=== PATIENT | female | born 1970 | race Caucasian/White ===

== ENCOUNTER 2022-05-21 19:57 | Observation (INO) | payer BC, OTHER ==
[2022-05-21] MEDS ORDERED: Ringers Lactate 1,000 ML IV ONE (21:01)
[2022-05-21] MEDS ORDERED: ONDANSETRON 4 MG/2 ML VIAL ONE (21:01)
[2022-05-21] MEDS ORDERED: FAMOTIDINE 20 MG/2 ML VIAL IV ONE (21:02)
[2022-05-21 21:06] LABS: Absolute Lymphocytes (CBC) 1.1 K/uL (0.7-4.9); Hematocrit 42.8 % (36.0-45.0); Lymphocytes % 7.6 % (15.3-44.8); MCV 94.3 fL (80-100); RBC Red Blood Cell Count 4.54 M/uL (3.86-4.86)
[2022-05-21 21:24] LABS: Albumin 4.8 g/dL (3.4-5.0); Potassium 3.8 mmol/L (3.5-5.1); Protein, Total 8.9 g/dL (6.4-8.2)
--- NOTE | 2022-05-21 21:57 | RAD REPORT ---
EXAM DESCRIPTION: CTAbdomen Pelvis W Contrast - 05/21/2022 9:51 pm CLINICAL HISTORY: Abdominal pain. Nausea/vomiting COMPARISON: No comparisons TECHNIQUE: Biphasic CT imaging of the abdomen and pelvis was performed with 100 ml non-ionic IV cont rast. All CT scans are performed using dose optimization technique as appropriate and may include automated exposure control or mA/KV adjustment according to patient size. FINDINGS: The lung bases are clear.Small hiatal hernia. The liver demonstrates diffuse fatty infiltration. The spleen, pancreas, adrenal glands and kidneys a re within normal limits. No bowel obstruction, free air, free fluid or abscess. Although it incompletely distended, mild thick ening of the colon may be present. The appendix is normal. No evidence of significant lymphadenopath y. No suspicious bony findings. IMPRESSION: A mild colitis may be present, although the colon is incompletely distended for full fabiana luation. Prominent fatty liver.
--- NOTE | 2022-05-21 23:43 | EDPHYS ---
Physician Documentation [facility] Name: Maribell Alvares Age: 52 yrs Sex: Female : 1970 Arrival Date: 05/21/2022 Time: 20:01 Bed 15 Private MD: ED Physician Jesse Argueta HPI: 05/21 20:20 This 52 yrs old Female presents to ER via Ambulatory with complaints of Vomiting. ms3 20:20 The patient presents to the emergency department with nausea, that is severe, vomiting, ms3 that is continuous, abdominal pain, of the epigastric area, described as sharp, and does not radiate. Onset: The symptoms/episode began/occurred 1 day(s) ago. Possible causes: unknown. The symptoms are aggravated by nothing. The symptoms are alleviated by nothing. Associated signs and symptoms: The patient has no apparent associated signs or symptoms. Severity of symptoms: At their worst the symptoms were severe in the emergency department the symptoms are unchanged Pain is currently a 5 / 10. Historical: - Allergies: 20:14 No Known Allergies; as6 - PMHx: 20:14 Hypertensive disorder; Asthma; Hypercholesterolemia; as6 - Immunization history:: Client reports receiving the 2nd dose of the Covid vaccine, moderna Flu vaccine is not up to date. - Social history:: Smoking status: Patient reports the use of cigarette tobacco products, smokes one-half pack cigarettes per day. ROS: 20:20 Constitutional: Negative for fever, and chills. Cardiovascular: Negative for chest ms3 pain, and palpitations. Respiratory: Negative for shortness of breath, cough, wheezing, and pleuritic chest pain. 20:20 Skin: Negative for injury, rash, and discoloration, Neuro: Negative for headache, weakness, numbness, tingling. 20:20 Abdomen/GI: Positive for abdominal pain, nausea and vomiting. 20:20 All other systems are negative. Exam: 20:20 Constitutional: This is a well developed, well nourished patient who is awake, alert, ms3 and in no acute distress. Head/Face: Normocephalic, atraumatic. Neck: Trachea midline, no cervical lymphadenopathy. Supple, full range of motion without nuchal rigidity, or vertebral point tenderness. No Meningismus. Chest/axilla: Normal chest wall appearance and motion. Nontender with no deformity. Respiratory: Lungs have equal breath sounds bilaterally, clear to auscultation and percussion. No rales, rhonchi or wheezes noted. No increased work of breathing, no retractions or nasal flaring. Abdomen/GI: Soft, non-tender, with normal bowel sounds. No distension or tympany. No guarding or rebound. No evidence of tenderness throughout. Skin: Warm, dry with normal turgor. Normal color with no rashes, no lesions, and no evidence of cellulitis. MS/ Extremity: Pulses equal, no cyanosis. Neurovascular intact. Full, normal range of motion. 20:20 Cardiovascular: Rate: tachycardic, Rhythm: regular, Pulses: no pulse deficits are appreciated, Heart sounds: normal, normal S1and S2. 05/22 00:04 ECG was reviewed by the Attending Physician. ms3 Vital Signs: 05/21 20:11 BP 181 / 121; Pulse 113; Resp 18 S; Temp 98.1(O); Pulse Ox 100% on R/A; Weight 83.91 kg as6 (R); Height 5 ft. 7 in. (170.18 cm) (R); Pain 5/10; 20:30 BP 151 / 96; Pulse 105; Resp 19 S; Pulse Ox 100% on R/A; ha1 21:30 BP 160 / 98; Pulse 99; Resp 20 S; Pulse Ox 98% on R/A; ha1 22:30 BP 154 / 92; Pulse 99; Resp 19 S; Pulse Ox 98% on R/A; ha1 23:30 BP 155 / 96; Pulse 98; Resp 19 S; Pulse Ox 98% on R/A; ha1 05/22 00:30 BP 155 / 96; Pulse 99; Resp 18 S; Pulse Ox 99% on R/A; ha1 01:30 BP 150 / 97; Pulse 98; Resp 19 S; Pulse Ox 98% on R/A; ha1 02:30 BP 142 / 90; Pulse 99; Resp 19 S; Pulse Ox 98% on R/A; ha1 03:30 BP 142 / 90; Pulse 100; Resp 19 S; Pulse Ox 98% on R/A; ha1 05/21 20:11 Body Mass Index 28.97 (83.91 kg, 170.18 cm) as6 MDM: 05/21 20:11 Patient medically screened. pm1 20:20 Differential diagnosis: Nonspecific abd pain, gastritis, gastroenteritis, bowel ms3 obstruction. 23:42 Data reviewed: vital signs, nurses notes, lab test result(s), radiologic studies, and ms3 as a result, I will admit patient. Counseling: I had a detailed discussion with the patient and/or guardian regarding: the historical points, exam findings, and any diagnostic results supporting the discharge/admit diagnosis, lab results, radiology results, the need for further work-up and treatment in the hospital. ED course: Discussed labs and imaging with patient and her . Patient remains with emesis. Will place patient in observation. Discussed case with JIMENEZ Lyn and she accepts patient on behalf of Dr Carlson.. 05/21 20:20 Order name: CBC with Diff; Complete Time: 21:57 ms3 05/21 20:20 Order name: CMP; Complete Time: 21:57 ms3 05/21 20:20 Order name: Lipase; Complete Time: 21:57 ms3 05/21 20:20 Order name: Urine Microscopic Only; Complete Time: 03:42 ms3 05/21 21:58 Order name: Blood Culture Adult (2) ms3 05/21 21:58 Order name: Lactate w/ 2H reflex if indic.; Complete Time: 03:42 ms3 05/21 21:58 Order name: Protime (+inr) ms3 05/21 21:58 Order name: Ptt, Activated; Complete Time: 03:42 ms3 05/21 23:29 Order name: Glucose, Ancillary Testing; Complete Time: 23:32 EDMS 05/21 23:44 Order name: SARS RAPID ms3 05/22 00:07 Order name: Urine Osmolality sb4 05/22 00:07 Order name: Urine Sodium Random sb4 05/22 00:07 Order name: Osmolality, Serum sb4 05/22 02:37 Order name: Urine Dipstick-Ancillary; Complete Time: 03:42 EDMS 05/21 20:20 Order name: CT Abd/Pelvis - IV Contrast Only; Complete Time: 22:01 ms3 05/21 21:58 Order name: EKG; Complete Time: 21:59 ms3 05/22 02:55 Order name: Protime (+INR); Complete Time: 03:42 EDMS 12/02 03:10 Order name: UR SODIUM; Complete Time: 03:42 EDMS 05/22 03:40 Order name: Osmolality, Urine; Complete Time: 03:42 EDMS 05/22 03:41 Order name: Osmolality, Serum; Complete Time: 03:42 EDMS 05/22 05:49 Order name: CBC with Automated Diff EDMS 05/22 06:28 Order name: Renal Panel EDMS 05/22 06:28 Order name: Magnesium EDMS 05/22 06:28 Order name: Thyroid Stimulating Hormone EDMS 05/22 18:02 Order name: Basic Metabolic Panel EDMS 05/22 18:02 Order name: Phosphorus EDMS 05/22 18:02 Order name: Magnesium EDMS 05/21 20:20 Order name: IV Saline Lock; Complete Time: 21:12 ms3 05/21 20:20 Order name: Labs collected and sent; Complete Time: 21:12 ms3 05/21 20:20 Order name: Urine Dipstick-Ancillary (obtain specimen); Complete Time: 02:47 ms3 05/21 21:58 Order name: Accucheck; Complete Time: 00:56 ms3 05/21 21:58 Order name: Cardiac monitoring; Complete Time: 00:56 ms3 05/21 21:58 Order name: EKG - Nurse/Tech; Complete Time: 00:56 ms3 05/21 21:58 Order name: IV Saline Lock - Large Bore; Complete Time: 00:56 ms3 05/21 21:58 Order name: O2 Per Protocol; Complete Time: 00:56 ms3 05/21 21:58 Order name: O2 Sat Monitoring; Complete Time: 00:56 ms3 05/21 21:58 Order name: Vital Signs; Complete Time: 00:56 ms3 EC/02 00:04 Rate is 98 beats/min. Rhythm is regular. QRS [place] is Normal. [place] interval is normal. QRS ms3 interval is normal. Clinical impression: NSR w/ Non-specific ST/T Changes. Interpreted by me. Reviewed by me. Administered Medications: 05/21 21:06 Drug: Zofran (Ondansetron) 4 mg Route: IVP; Site: left antecubital; ha1 21:30 Follow up: Response: No adverse reaction; Nausea is decreased ha1 21:08 Drug: Pepcid (famotidine) 20 mg Route: IVP; Site: left antecubital; ha1 21:30 Follow up: Response: No adverse reaction ha1 21:10 Drug: Lactated Ringers Solution 1000 ml Route: IV; Rate: 1000 bolus; Site: left ha1 antecubital; 05/22 00:15 Follow up: Response: No adverse reaction; IV Status: Completed infusion; IV Intake: ha1 1000ml Disposition Summary: 05/21/22 23:42 Hospitalization Ordered Hospitalization Status: Observation ms3 Provider: Roly Carlson ms3 Condition: Stable ms3 Problem: new ms3 Symptoms: are unchanged ms3 Bed/Room Type: Standard ms3 Location: [facility](05/22/22 20:21) mw Room Assignment: [facility]-(05/22/22 20:21) mw Diagnosis - Vomiting ms3 - Hypo-osmolality and hyponatremia ms3 - Acute Kidney Injury ms3 Forms: - Medication Reconciliation Form ms3 - SBAR form ms3 Signatures: Dispatcher [employer] EDMS Mesha Casillas RN RN Nile Chester, STOCK DIGGER STOCK DIGGER pm1 Jesse Argueta, DO DO ms3 Raj Alberto RN RN as6 Avis Guthrie RN RN ha1 Nina Caruso, PANaya PANaya sb4 Corrections: (The following items were deleted from the chart) 05/21 23:46 23:42 Telemetry/MedSurg (observation) ms3 mw 23:46 23:42 ms3 mw 05/22 20:21 05/21 23:46 [facility] ER HOLD mw mw 05/22 20:21 12 23:46 ERHOLD- mw mw
--- NOTE | 2022-05-21 23:43 | ER ---
Nurse's Notes [facility] Name: Maribell Alvares Age: 52 yrs Sex: Female : 1970 Arrival Date: 05/21/2022 Time: 20:01 Bed 15 Private MD: Diagnosis: Vomiting;Hypo-osmolality and hyponatremia;Acute Kidney Injury Presentation: 05/21 20:11 Chief complaint: Patient states: "Wednesday morning at 4 am I started vomiting and it as6 hasn't really slowed down". Coronavirus screen: At this time, the client does not indicate any symptoms associated with coronavirus-19. Ebola Screen: No symptoms or risks identified at this time. Initial Sepsis Screen: Does the patient meet any 2 criteria? No. Patient's initial sepsis screen is negative. Does the patient have a suspected source of infection? No. Patient's initial sepsis screen is negative. Risk Assessment: Do you want to hurt yourself or someone else? Patient reports no desire to harm self or others. Onset of symptoms was May 20, 2022. 20:11 Method Of Arrival: Ambulatory as6 20:11 Acuity: CÉSAR 3 as6 Triage Assessment: 20:15 General: Appears uncomfortable, Behavior is calm, cooperative. Pain: Complains of pain as6 in epigastric area. GI: Reports upper abdominal pain, nausea, vomiting. Historical: - Allergies: 20:14 No Known Allergies; as6 - PMHx: 20:14 Hypertensive disorder; Asthma; Hypercholesterolemia; as6 - Immunization history:: Client reports receiving the 2nd dose of the Covid vaccine, moderna Flu vaccine is not up to date. - Social history:: Smoking status: Patient reports the use of cigarette tobacco products, smokes one-half pack cigarettes per day. Screenin/02 00:03 Abuse screen: Denies threats or abuse. Denies injuries from another. Nutritional ha1 screening: No deficits noted. Tuberculosis screening: No symptoms or risk factors identified. Fall Risk None identified. Assessment: 05/21 20:30 General: Appears uncomfortable, Behavior is calm, cooperative. Pain: Denies pain. ha1 Cardiovascular: Capillary refill < 3 seconds Patient's skin is warm and dry. Respiratory: Airway is patent Trachea midline Respiratory effort is even, unlabored. 20:30 Neuro: Level of Consciousness is awake, alert, obeys commands, Oriented to person, ha1 place, time, situation. 20:30 Respiratory: GI: Abdomen is non-distended, obese, Bowel sounds present X 4 quads. ha1 Reports vomiting. : No signs and/or symptoms were reported regarding the genitourinary system. EENT: No deficits noted. No signs and/or symptoms were reported regarding the EENT system. Derm: Skin is healthy with good turgor, Skin is pink, warm \\T\\ dry. Musculoskeletal: Circulation, motion, and sensation intact. Range of motion: intact in all extremities. 21:30 Reassessment: Patient and/or family updated on plan of care and expected duration. Pain ha1 level reassessed. Patient is alert, oriented x 3, equal unlabored respirations, skin warm/dry/pink. 22:30 Reassessment: Patient and/or family updated on plan of care and expected duration. Pain ha1 level reassessed. Patient is alert, oriented x 3, equal unlabored respirations, skin warm/dry/pink. Patient states symptoms have improved. 23:30 Reassessment: Patient and/or family updated on plan of care and expected duration. Pain ha1 level reassessed. Patient is alert, oriented x 3, equal unlabored respirations, skin warm/dry/pink. Vital Signs: 20:11 BP 181 / 121; Pulse 113; Resp 18 S; Temp 98.1(O); Pulse Ox 100% on R/A; Weight 83.91 kg as6 (R); Height 5 ft. 7 in. (170.18 cm) (R); Pain 5/10; 20:30 BP 151 / 96; Pulse 105; Resp 19 S; Pulse Ox 100% on R/A; ha1 21:30 BP 160 / 98; Pulse 99; Resp 20 S; Pulse Ox 98% on R/A; ha1 22:30 BP 154 / 92; Pulse 99; Resp 19 S; Pulse Ox 98% on R/A; ha1 23:30 BP 155 / 96; Pulse 98; Resp 19 S; Pulse Ox 98% on R/A; ha1 12 00:30 BP 155 / 96; Pulse 99; Resp 18 S; Pulse Ox 99% on R/A; ha1 01:30 BP 150 / 97; Pulse 98; Resp 19 S; Pulse Ox 98% on R/A; ha1 02:30 BP 142 / 90; Pulse 99; Resp 19 S; Pulse Ox 98% on R/A; ha1 03:30 BP 142 / 90; Pulse 100; Resp 19 S; Pulse Ox 98% on R/A; ha1 05/21 20:11 Body Mass Index 28.97 (83.91 kg, 170.18 cm) as6 ED Course: 05/21 20:01 Patient arrived in ED. bp1 20:11 Jesse Argueta DO is Attending Physician. pm1 20:14 Triage completed. as6 20:15 Arm band placed on. as6 20:18 Patient has correct armband on for positive identification. Bed in low position. Call ha1 light in reach. Side rails up X 1. Adult w/ patient. 20:33 Avis Guthrie, RN is Primary Nurse. ha1 21:15 Initial lab(s) drawn, by me, sent to lab. Inserted saline lock: 22 gauge in left tw5 antecubital area, using aseptic technique. Blood collected. 21:52 CT Abd/Pelvis - IV Contrast Only In Process Unspecified. EDMS 23:41 Roly Carlson MD is Hospitalizing Provider. ms3 05/22 02:47 Urine Microscopic Only Sent. ha1 03:45 SARS RAPID Sent. ha1 21:21 Patient admitted, IV remains in place. ke1 21:21 No provider procedures requiring assistance completed. ke1 Administered Medications: 05/21 21:06 Drug: Zofran (Ondansetron) 4 mg Route: IVP; Site: left antecubital; ha1 21:30 Follow up: Response: No adverse reaction; Nausea is decreased ha1 21:08 Drug: Pepcid (famotidine) 20 mg Route: IVP; Site: left antecubital; ha1 21:30 Follow up: Response: No adverse reaction ha1 21:10 Drug: Lactated Ringers Solution 1000 ml Route: IV; Rate: 1000 bolus; Site: left ha1 antecubital; 05/22 00:15 Follow up: Response: No adverse reaction; IV Status: Completed infusion; IV Intake: ha1 1000ml Medication: 21:21 VIS not applicable for this client. ke1 Intake: 00:15 IV: 1000ml; Total: 1000ml. ha1 Outcome: 05/21 23:42 Decision to Hospitalize by Provider. ms3 05/22 21:21 Admitted to L \\T\\ D, accompanied by tech. ke1 Condition: stable Instructed on the need for admit. 21:22 Patient left the ED. ke1 Signatures: Dispatcher [employer] EDMS Nile Chester, ADRIEN DEVELOPMENT ASSOCIATE pm1 Jesse Argueta DO DO ms3 Marifer Rao Tiffany tw5 Raj Alberto RN RN as6 Rcahelle Juarez RN RN ke1 Avis Guthrie RN RN ha1 Corrections: (The following items were deleted from the chart) 05/21 22:01 20:30 Neuro: Level of Consciousness is awake, alert, obeys commands, Oriented to ha1 person, place, time, situation, ha1 22:03 20:30 Neuro: Level of Consciousness is awake, alert, obeys commands, Oriented to ha1 person, place, time, situation, ha1 22:59 22:01 Reassessment: Patient and/or family updated on plan of care and expected ha1 duration. Pain level reassessed. Patient is alert, oriented x 3, equal unlabored respirations, skin warm/dry/pink. ha1
--- NOTE | 2022-05-21 23:56 | P.HP ---
Certification for Inpatient Patient admitted to: Observation With expected LOS: <2 Midnights Patient will require the following post-hospital care: None Practitioner: I am a practitioner with admitting privileges, knowledge of patient current condition, hospital course, and medical plan of care. Services: Services provided to patient in accordance with Admission requirements found in Title 42 Section 412.3 of the Code of Federal Regulations Patient History Date of Service: 05/22/22 Primary Care Provider: Isaiah Reason for admission: Intractable Vomiting, NATY History of Present Illness: Patient is a 52 year old female with past medical history of hypertension, hyperlipidemia, asthma who presented to the ED with complaints of vomiting and heartburn. Patient reports that the vomiting began Wednesday morning around 4AM and has occurred every 30 minutes since. She has not been able to hold any food/liquid down. She denies abdominal pain but does report heartburn associated with the vomiting. She states that she had a small amount of diarrhea yesterday, but has not had any since. Her labs are significant for WBC 14, sodium 127, chloride 87, BUN 25, creatinine 1.45. CT abdomen pelvis showed "A mild colitis may be present, although the colon is incompletely distended for full evaluation. Prominent fatty liver." She was given zofran, pepcid, and 1L LR in ED. Patient is admitted for further management. Allergies No Known Allergies Allergy (Unverified 02/03/14 00:17) Home medications list reviewed: Yes Home Medications: Mag Hydroxide 8% [Milk Of Magnesia*] 30 ml PO Q6HP 02/03/14 Polyethylene Glycol 3350 [Miralax] 17 gm PO DAILY 02/03/14 clonazePAM [Klonopin*] 0.5 mg PO BID 02/03/14 Hydrocodone Bit/Acetaminophen [[place] 10-325 Tablet] 1 each PO Q6H PRN #30 tablet 02/05/14 Losartan Potassium [Cozaar*] 50 mg PO BID #60 tablet 02/05/14 Ondansetron [Zofran (Odt)*] 4 mg PO Q6H PRN #14 tab 02/05/14 - Past Medical/Surgical History Diabetic: No -: Hypertension -: Hyperlipidemia -: Asthma Past Surgical History: Patient denies surgical history Psychosocial/ Personal History: Patient lives at home with family. - Family History Family History: Reviewed- Non-Contributory - Social History Smoking Status: Current every day smoker Alcohol use: Yes CD- Drugs: No Caffeine use: No Place of Residence: Home Review of Systems General: Sweats Gastrointestinal: Nausea, Vomiting, Other (Heartburn) Physical Examination - Physical Exam General: Alert, In no apparent distress HEENT: Atraumatic, PERRLA, Other (Dry mucous membranes), EOMI, Sclerae nonicteric Neck: Supple, 2+ carotid pulse no bruit, No LAD, Without JVD or thyroid abnormality Respiratory: Clear to auscultation bilaterally, Normal air movement Cardiovascular: Regular rate/rhythm, Normal S1 S2 Gastrointestinal: Normal bowel sounds, No tenderness Musculoskeletal: No tenderness Integumentary: No rashes Neurological: Normal speech, Normal strength at 5/5 x4 extr, Normal tone, Normal affect - Studies Laboratory Data (last 24 hrs) 05/21/22 20:55: Sodium 127 L, Potassium 3.8, BUN 25 H, Creatinine 1.45 H, Glucose 175 H, Total Bilirubin 1.0, AST 47 H, ALT 46, Alkaline Phosphatase 74, Lipase 174 05/21/22 20:55: WBC 14.10 H, Hgb 14.5, Hct 42.8, Plt Count 289 Assessment and Plan - Problems (Diagnosis) (1) Acute kidney injury Current Visit: Yes Status: Acute (2) Intractable vomiting Current Visit: Yes Status: Acute (3) Hyponatremia Current Visit: Yes Status: Acute (4) Dehydration Current Visit: Yes Status: Acute (5) Hyperlipidemia Current Visit: Yes Status: Chronic Qualifiers: Hyperlipidemia type: unspecified Qualified Code(s): E78.5 - Hyperlipidemia, unspecified (6) HTN (hypertension) Current Visit: Yes Status: Chronic Qualifiers: Hypertension type: primary hypertension Qualified Code(s): I10 - Essential (primary) hypertension - Plan NS at 150 cc/hr for hypovolemic hyponatremia secondary to dehydration. Serum osmolality, urine osmolality, and urine sodium pending. Repeat labs in AM, including renal panel. NATY prerenal secondary to dehydration/vomiting. Antiemetics PRN. Monitor and replete electrolytes per protocol. Reconcile and continue home medications. Lovenox for VTE prophylaxis. Full code. Discharge Plan: Home Plan to discharge in: 24 Hours - Advance Directives Does patient have a Living Will: No Does patient have a Durable POA for Healthcare: No - Code Status/Comfort Care Code Status Assessed: Yes Code Status: Full Code Critical Care: No Time Spent Managing Pts Care (In Minutes): 50
[2022-05-22] MEDS ORDERED: ACETAMINOPHEN 500 MG TAB PO PRN (01:55)
[2022-05-22] MEDS: NA CHLORIDE 0.9% 1,000 ML IV SCH ×3 (01:55→21:34)
[2022-05-22] MEDS ORDERED: ACETAMINOPHEN 325 MG TABLET PO PRN (02:00)
[2022-05-22] MEDS ORDERED: PROMETHAZINE INJ 25 MG/ML AMP ONE ×2 (02:10→06:47)
[2022-05-22] MEDS ORDERED: NA CHLORIDE 0.9% 1,000 ML ONE ×2 (02:11→15:18)
[2022-05-22] MEDS: PROMETHAZINE INJ 25 MG/ML AMP IV PRN ×2 (02:30→06:52)
[2022-05-22 02:37] LABS: Urine Blood 2+ (Negative); Urine Glucose Negative (Negative); Urine Protein 3+ (Negative); Urine Specific Gravity 1.015 (1.005-1.030)
[2022-05-22 02:55] LABS: Protime INR 0.95
[2022-05-22 03:10] LABS: Urine Bacteria <20 /HPF (<20); Urine Mucus Slight /HPF (None Seen)
[2022-05-22 04:14] LABS: SARS-CoV-2 Antigen Rapid Res Negative (Negative)
[2022-05-22 05:03] VITALS: BMI 29.0
[2022-05-22 05:41] LABS: Absolute Lymphocytes (CBC) 1.8 K/uL (0.7-4.9); Hematocrit 39.6 % (36.0-45.0); Lymphocytes % 17.7 % (15.3-44.8); MCV 95.1 fL (80-100); RBC Red Blood Cell Count 4.16 M/uL (3.86-4.86)
[2022-05-22 06:09] LABS: Albumin 4.1 g/dL (3.4-5.0); Magnesium 1.7 mg/dL (1.8-2.4); Phosphorus 1.4 mg/dL (2.5-4.9); Potassium 3.2 mmol/L (3.5-5.1); Thyroid Stimulating Hormone 1.39 uIU/mL (0.360-3.740)
[2022-05-22] MEDS ORDERED: POTASSIUM PHOS 40 MEQ in NA CHLORIDE 0.9% 500 ML IV ONE (07:03)
[2022-05-22] MEDS ORDERED: Magnesium Sulfate 2gm IVPB 2 G/50 ML BAG IV ONE ×2 (07:03→08:52)
--- NOTE | 2022-05-22 07:49 | EKG ---
Test Date: 2022-05-22 Test Time: 00:01:48 Day Care Home Provider: DIA MEASUREMENT RESULTS: Intervals: Rate: 98 GA: 140 QRSD: 80 QT: 358 QTc: 457 [place]: P: 69 GA: 140 QRS: 41 T: 59 INTERPRETIVE STATEMENTS: Normal sinus rhythm Nonspecific T wave abnormality Abnormal ECG Compared to ECG 02/02/2014 19:36:42 T-wave abnormality now present Short GA interval no longer present Electronically Signed On 05-22-22 07:48:45 ENAMEL MACHINE OPERATOR by Serg Olivarez
[2022-05-22] MEDS ORDERED: INFLUENZA VACCINE (for 6+ mo) 0.5 ML DOSE IMVAC ONE (08:00)
[2022-05-22] MEDS ORDERED: ENOXAPARIN 40 MG/0.4 ML SQ ONE (08:52)
[2022-05-22] MEDS ORDERED: ONDANSETRON 4 MG/2 ML VIAL ONE (08:52)
[2022-05-22] MEDS: ENOXAPARIN 40 MG/0.4 ML SQ SCH (09:00)
[2022-05-22] MEDS ORDERED: MAGNES/ALUMIN/SIMET 30ML UCUP PO ONE (09:10)
[2022-05-22] MEDS ORDERED: MAGNES/ALUMIN/SIMET 30ML UCUP ONE (09:14)
[2022-05-22] MEDS ORDERED: ONDANSETRON 4 MG/2 ML VIAL IV PRN (13:48)
[2022-05-22] MEDS ORDERED: PROMETHAZINE 25 MG TABLET PO PRN (13:48)
[2022-05-22] MEDS ORDERED: HOME MED [ALBUTEROL INHALER 60 PUFF/8 GM] IH PRN (14:14)
[2022-05-22] MEDS ORDERED: clonazePAM 0.5 MG TAB PO ONE (15:00)
[2022-05-22] MEDS ORDERED: clonazePAM 0.5 MG TAB ONE ×2 (15:17→21:33)
[2022-05-22] MEDS ORDERED: FAMOTIDINE 20 MG/2 ML VIAL IV ONE ×2 (15:18→16:00)
[2022-05-22 17:53] LABS: Magnesium 2.4 mg/dL (1.8-2.4); Phosphorus 1.9 mg/dL (2.5-4.9); Potassium 3.2 mmol/L (3.5-5.1)
[2022-05-22] MEDS: clonazePAM 0.5 MG TAB PO SCH (21:34)
[2022-05-22 21:54] VITALS: O2SAT 98
[2022-05-23] MEDS: NA CHLORIDE 0.9% 1,000 ML IV SCH (05:33)
[2022-05-23] MEDS: clonazePAM 0.5 MG TAB PO SCH (09:00)
[2022-05-23] MEDS ORDERED: MONTELUKAST 10 MG TAB PO SCH (09:00)
[2022-05-23] MEDS: ENOXAPARIN 40 MG/0.4 ML SQ SCH (09:00)
[2022-05-23] MEDS ORDERED: POLYETHYL GLY 3350 17 GM/DOSE PO SCH (09:00)
[2022-05-23] MEDS ORDERED: allopurinoL 300 MG TAB PO SCH (09:00)
[2022-05-23] MEDS ORDERED: HOME MED 1 EA UNK (Olmesartan Medoxomil [Olmesartan Medoxomil] 40 MG Tablet) PO SCH (09:00)
[2022-05-23] MEDS ORDERED: FENOFIBRATE 160 MG TAB PO SCH (09:00)
[2022-05-23] MEDS ORDERED: HOME MED 1 EA UNK (Fluticasone/Umeclidin/Vilanter [Trelegy Ellipta 200-62.5-25] Blst.W.Dev IH SCH (09:00)
[2022-05-23] MEDS ORDERED: ROSUVASTATIN 10 MG TAB PO SCH (09:00)
[2022-05-23] MEDS ORDERED: VALSARTAN 160 MG TAB PO SCH (09:00)
[2022-05-23 09:04] LABS: Magnesium 2.2 mg/dL (1.8-2.4); Phosphorus 1.9 mg/dL (2.5-4.9)
[2022-05-23] MEDS ORDERED: POTASSIUM 25 MEQ EFFERV TAB PO ONE (09:59)
[2022-05-23] MEDS ORDERED: POTASS/SODIUM PHOSPHATE 1 PKT POWD.PACK PO ONE (10:03)
[2022-05-23 12:35] VITALS: BP 148/94; TEMP 97.2
== END 2022-05-23 12:54 | disposition home or self-care (01) ==
LOC: ER 19:57 → ERHOLD 05-22 00:01 → 2ND-WC 05-22 21:05
PROVIDERS: ADMIT Hospitalist; ATTEND Hospitalist
DX: N17.9 Acute kidney failure, unspecified (principal); R11.10 Vomiting, unspecified; E87.1 Hypo-osmolality and hyponatremia; E86.0 Dehydration; E78.5 Hyperlipidemia, unspecified; I10 Essential (primary) hypertension; F17.210 Nicotine dependence, cigarettes, uncomplicated; R12 Heartburn; Z20.822 Contact with and (suspected) exposure to COVID-19; Z23 Encounter for immunization
CPT/HCPCS: 96361; 93005; 87040 ×2; 85025 ×2; 80048 ×2; 36415 ×2; 83735 ×3; 84100 ×2; 85610; 84300; 82947; 83605; 85730; 80069; 84443; 83690; 80053; 83930; 83935; 74177; 96375; 96374; 99285; 87811; Q9967; J2550 ×2; Q0169; J1650 ×2; J3475; J7120; J7040; J7030 ×4; J2405 ×3; 81003; 81015; G0378

== ENCOUNTER 2023-05-07 15:29 | Emergency (ER) | payer BC, SELFPAY ==
--- OUTSIDE RECORDS SUMMARY | 2023-05-07 15:31 | XMS REPORT | Continuity of Care Document ---
:1970 Author Organization [facility] t Address [address] [address] Care Team Providers Name Role Phone [email or web address] Attending Clinician Unavailable [email or web address] Admitting Clinician Unavailable Problems This patient has no known problems. Allergies, Adverse Reactions, Alerts This patient has no known allergies or adverse reactions. Medications This patient has no known medications. Procedures This patient has no known procedures. Encounters Start End Encounter Admission Attending Care Care Encounter Source Date/Time Date/Time Type Type Clinicians Facility Department ID 2023-04-16 2023-04-16 Outpatient [email or web address] PRIV PRIV [id number] [facility] 00:00:00 00:00:00 diyala_S [id number] Medic al Results This patient has no known results.
--- NOTE | 2023-05-07 16:47 | RAD REPORT ---
EXAM DESCRIPTION: RAD - Chest Single View - 05/07/2023 4:41 pm CLINICAL HISTORY: ABDOMINAL DISTENTION Chest pain. COMPARISON: Chest Pa And Lat (2 Views) dated 04/02/2020; CHEST SINGLE VIEW dated 02/02/2014 FINDINGS: Portable technique limits examination quality. The lungs are grossly clear. The heart is normal in size. No displaced fractures. IMPRESSION: No acute intrathoracic process suspected.
[2023-05-07] MEDS ORDERED: NA CHLORIDE 0.9% 1,000 ML ONE ×2 (16:51→19:09)
[2023-05-07] MEDS ORDERED: ONDANSETRON 4 MG/2 ML VIAL ONE (16:51)
[2023-05-07] MEDS ORDERED: MORPHINE 2 MG/ML SYR ONE ×3 (17:10→22:18)
[2023-05-07] MEDS ORDERED: LABETALOL 20 MG/4ML SYRINGE IV ONE (17:11)
[2023-05-07 17:12] LABS: Hematocrit 42.3 % (36.0-45.0); Lymphocytes % 8.1 % (15.3-44.8); MCV 95.4 fL (80-100); MPV 9.2 fL (7.6-11.3); Platelets 236 thou/uL (152-406); RBC Red Blood Cell Count 4.43 M/uL (3.86-4.86)
[2023-05-07 17:13] LABS: Protime INR 0.95
--- NOTE | 2023-05-07 17:19 | RAD REPORT ---
EXAM DESCRIPTION: US - Abdomen Exam Limited - 05/07/2023 4:48 pm CLINICAL HISTORY: Abd pain;Nausea / vomiting COMPARISON: Abdomen Pelvis W Contrast dated 05/21/2022 FINDINGS: The gallbladder demonstrates no gallstones. No pericholecystic fluid or gallbladder wall t hickening. The common bile duct is mildly prominent measuring 8 mm. The liver demonstrates no findings of intrahepatic biliary dilatation. IMPRESSION: No gallstones are visualized. Common bile duct appears mildly dilated measuring 8 mm. MRCP may be helpful for further evaluation.
[2023-05-07 17:28] LABS: Magnesium 1.9 mg/dL (1.6-2.4); Troponin High Sensitivity 12.5 pg/mL (<58.9)
[2023-05-07 17:40] LABS: Albumin 4.6 g/dL (3.4-5.0); Bilirubin Total 0.9 mg/dL (0.2-1.0); Potassium 3.3 mEq/L (3.5-5.1); Protein, Total 8.8 g/dL (6.4-8.2)
--- NOTE | 2023-05-07 18:20 | RAD REPORT ---
EXAM DESCRIPTION: MRI - Cholangiogram - 05/07/2023 6:09 pm CLINICAL HISTORY: VOMITING ABD PAIN COMPARISON: Abdomen Pelvis Wo Contrast dated 05/07/2023 FINDINGS: Three-dimensional MRCP was performed using maximum intensity projection reconstruction on the same work station. No intrahepatic biliary tree dilatation is seen. Common bile duct is mildly dilated. There is a relat ively abrupt cut off of the distal common duct seen without clear evidence of a stone. The pancreatic duct is not pathologically dilated. Moderate inflammation is seen involving the pancreas The gallbladder is unremarkable. The liver demonstrates fatty infiltration. IMPRESSION: There is evidence of moderate acute pancreatitis. No intrahepatic biliary tree dilatation. Common duct is mildly dilated with relatively abrupt cut off distally which could indicate narrowing related to edema in the pancreas or a stricture. A common du ct stone is not evident.
--- NOTE | 2023-05-07 18:22 | RAD REPORT ---
EXAM DESCRIPTION: CT - Abdomen Pelvis Wo Contrast - 05/07/2023 6:13 pm CLINICAL HISTORY: Abdominal pain. ABD PAIN COMPARISON: Abdomen Pelvis W Contrast dated 05/21/2022 TECHNIQUE: CT imaging of the abdomen and pelvis was performed without contrast. Solid organ, bowel a nd vascular assessment is limited due to lack of IV and oral contrast. All CT scans are performed using dose optimization technique as appropriate and may include automated exposure control or mA/KV adjustment according to patient size. FINDINGS: The lower lung ortez are clear. Mild diffuse fatty liver. No solid liver mass or biliary dilatation. The pancreas, adrenal glands and kidneys are within normal limits.Mild to moderate inflammation is seen involving the pancreas likely representing acute pancreatitis. No pseudocyst seen. No bowel obstruction, free air, free fluid or abscess. The appendix is normal. The osseous structures are within normal limits. IMPRESSION: Mild to moderate acute pancreatitis. A limited non-contrast examination was performed as detailed.
[2023-05-07 18:26] LABS: Blood Morphology Comment NOT SEEN (NOT SEEN); Platelet Estimate ADEQ; Platelets, Giant PRESENT
--- NOTE | 2023-05-07 18:36 | EDPHYS ---
Physician Documentation [facility] Name: Maribell Alvares Age: 53 yrs Sex: Female : 1970 Arrival Date: 05/07/2023 Time: 15:29 Bed 16 Private MD: ED Physician Salinas Thurman HPI: 05/07 16:47 This 53 yrs old Female presents to ER via Ambulatory with complaints of piyush Vomiting, Decreased Appetite, Abdominal Pain. 16:47 This 53 yrs old Female presents to ER via Ambulatory with complaints of piyush Vomiting, Decreased Appetite, Abdominal Pain. 16:47 The patient presents to the emergency department with nausea, vomiting, abdominal pain, piyush of the epigastric area, right upper quadrant and left upper quadrant. Onset: The symptoms/episode began/occurred 4 day(s) ago. Possible causes: unknown. The symptoms are aggravated by movement, pressure, food , The symptoms are alleviated by nothing. remaining still. Associated signs and symptoms: Pertinent positives: abdominal pain, anorexia, nausea, vomiting. Severity of symptoms: At their worst the symptoms were moderate in the emergency department the symptoms are unchanged. The patient has not experienced similar symptoms in the past. Historical: - Allergies: 15:46 No Known Allergies; nj1 - PMHx: 15:46 Asthma; Hypercholesterolemia; Hypertensive disorder; nj1 - Immunization history:: Client reports receiving the 2nd dose of the Covid vaccine. - Social history:: Smoking status: Patient reports the use of cigarette tobacco products, smokes one-half pack cigarettes per day. ROS: 16:48 Constitutional: Negative for fever, chills, and weight loss, Eyes: Negative for injury, piyush pain, redness, and discharge, ENT: Negative for injury, pain, and discharge, Neck: Negative for injury, pain, and swelling, Respiratory: Negative for shortness of breath, cough, wheezing, and pleuritic chest pain, Back: Negative for injury and pain, : Negative for injury, bleeding, discharge, and swelling, MS/Extremity: Negative for injury and deformity, Skin: Negative for injury, rash, and discoloration, Neuro: Negative for headache, weakness, numbness, tingling, and seizure, Psych: Negative for depression, anxiety, suicide ideation, homicidal ideation, and hallucinations, Allergy/Immunology: Negative for hives, rash, and allergies, Endocrine: Negative for neck swelling, polydipsia, polyuria, polyphagia, and marked weight changes, Hematologic/Lymphatic: Negative for swollen nodes, abnormal bleeding, and unusual bruising, 16:48 Cardiovascular: Positive for palpitations, 16:48 Respiratory: Positive for cough, with no reported sputum, Negative for shortness of breath, 16:48 Abdomen/GI: Positive for abdominal pain, nausea and vomiting, abdominal cramps, of the epigastric area, right upper quadrant and left upper quadrant, Exam: 16:48 Constitutional: This is a well developed, well nourished patient who is awake, alert, piyush and in no acute distress. Head/Face: Normocephalic, atraumatic. Eyes: Pupils equal round and reactive to light, extra-ocular motions intact. Lids and lashes normal. Conjunctiva and sclera are non-icteric and not injected. Cornea within normal limits. Periorbital areas with no swelling, redness, or edema. ENT: Nares patent. No nasal discharge, no septal abnormalities noted. Tympanic membranes are normal and external auditory canals are clear. Oropharynx with no redness, swelling, or masses, exudates, or evidence of obstruction, uvula midline. Mucous membranes moist. Neck: Trachea midline, no thyromegaly or masses palpated, and no cervical lymphadenopathy. Supple, full range of motion without nuchal rigidity, or vertebral point tenderness. No Meningismus. Chest/axilla: Normal chest wall appearance and motion. Nontender with no deformity. No lesions are appreciated. Respiratory: Lungs have equal breath sounds bilaterally, clear to auscultation and percussion. No rales, rhonchi or wheezes noted. No increased work of breathing, no retractions or nasal flaring. Back: No spinal tenderness. No costovertebral tenderness. Full range of motion. Skin: Warm, dry with normal turgor. Normal color with no rashes, no lesions, and no evidence of cellulitis. MS/ Extremity: Pulses equal, no cyanosis. Neurovascular intact. Full, normal range of motion. Neuro: Awake and alert, GCS 15, oriented to person, place, time, and situation. Cranial nerves II-XII grossly intact. Motor strength 5/5 in all extremities. Sensory grossly intact. Cerebellar exam normal. Normal gait. Psych: Awake, alert, with orientation to person, place and time. Behavior, mood, and affect are within normal limits. 16:48 Cardiovascular: Rate: tachycardic, actual rate is 116 bpm, Rhythm: regular, Pulses: Pulses are 4+ in bilateral radial, brachial, femoral, popliteal, posterior tibial and and dorsalis pedis arteries.. Heart sounds: normal, Edema: is not appreciated, JVD: is not appreciated, 16:48 Abdomen/GI: Inspection: distension, that is mild, in the right upper quadrant and left upper quadrant, obese Bowel sounds: normal, Palpation: mild abdominal tenderness, moderate abdominal tenderness, in the epigastric area, right upper quadrant and left upper quadrant, mass, is not appreciated, rebound tenderness, is not appreciated, Liver: no appreciated palpable abnormalities, Hernia: not appreciated, 17:29 ECG was reviewed by the Attending Physician. [facility] Vital Signs: 15:43 BP 154 / 115; Pulse 116; Resp 18; Temp 97.5(O); Pulse Ox 100% ; Weight 86.18 kg; Height nj1 5 ft. 7 in. ; Pain 8/10; 16:15 BP 154 / 126; Pulse 109; Resp 20; Pulse Ox 100% on R/A; me1 16:55 BP 145 / 99; Pulse 108; Resp 18; Pulse Ox 100% on R/A; me1 17:05 BP 136 / 105; Pulse 87; Resp 19; Pulse Ox 100% ; me1 18:07 BP 156 / 100; Pulse 89; Resp 20; Pulse Ox 100% on R/A; me1 18:30 BP 156 / 110; Pulse 90; Resp 20; Pulse Ox 100% on R/A; me1 19:00 BP 147 / 100; Pulse 84; Resp 19; Pulse Ox 100% ; me1 19:42 BP 169 / 116; Pulse 82; Resp 19; Pulse Ox 100% on R/A; me1 19:51 BP 117 / 115; Pulse 82; Resp 20; Pulse Ox 100% on R/A; me1 19:59 BP 144 / 106; Pulse 94; Resp 18; Pulse Ox 100% on R/A; me1 20:36 BP 153 / 92; Pulse 75; Resp 18; Pulse Ox 100% on R/A; me1 15:43 Body Mass Index 29.76 (86.18 kg, 170.18 cm) [facility] 15:43 Pain Scale: Adult [facility] MDM: 15:58 Patient medically screened. [facility] 16:51 Differential diagnosis: Nonspecific abd pain, gastritis, cholecystitis, pancreatitis, piyush appendicitis, diverticulitis, viral gastroenteritis, gastroenteritis. Data reviewed: vital signs, nurses notes, lab test result(s), EKG, radiologic studies, CT scan, plain films, ultrasound. Consideration of Admission/Observation Patient was admitted/placed on observation. Escalation of care including admission/observation considered. I considered the following discharge prescriptions or medication management in the emergency department Medications were administered in the Emergency Department. See MAR. Independent interpretation of the following test(s) in the Emergency Department EKG: See my EKG interpretation above. Test considered but Not performed: MRI: no mrcp. Historians other than the Patient: Spouse/Significant Other: . Care significantly affected by the following chronic conditions: Hypertension. Counseling: I had a detailed discussion with the patient and/or guardian regarding the historical points, exam findings, and any diagnostic results supporting the discharge/admit diagnosis, the presence of at least one elevated blood pressure reading (>120/80) during this emergency department visit, lab results, radiology results, the need for further work-up and treatment in the hospital. 05/07 15:53 Order name: Flu; Complete Time: 17:57 05/07 15:53 Order name: CBC with Diff; Complete Time: 18:30 05/07 15:53 Order name: CMP; Complete Time: 17:57 05/07 15:53 Order name: Lipase; Complete Time: 17:57 05/07 16:01 Order name: Magnesium; Complete Time: 17:57 [facility] 05/07 16:01 Order name: NT PRO-BNP; Complete Time: 17:57 [facility] 05/07 16:01 Order name: PT-INR; Complete Time: 17:18 [facility] 05/07 16:01 Order name: Troponin HS; Complete Time: 17:57 [facility] 05/07 16:02 Order name: Strep [facility] 05/07 17:16 Order name: SARS-COV-2 RT PCR; Complete Time: 17:57 [facility] 05/07 17:30 Order name: Throat Culture [facility] 05/07 18:26 Order name: Manual Differential; Complete Time: 18:30 [facility] 05/07 15:53 Order name: US Abdomen Limited; Complete Time: 17:25 05/07 16:01 Order name: XRAY Chest (1 view); Complete Time: 17:18 [facility] 05/07 17:32 Order name: Cholangiogram; Complete Time: 18:30 [facility] 05/07 18:01 Order name: CT Abd/Pelvis - Without Contrast; Complete Time: 18:30 [facility] 05/07 16:01 Order name: EKG; Complete Time: 16:01 [facility] 05/07 15:53 Order name: IV Saline Lock; Complete Time: 16:53 rn 05/07 15:53 Order name: Labs collected and sent; Complete Time: 16:53 rn 05/07 16:01 Order name: Cardiac monitoring; Complete Time: 17:12 [facility] 05/07 16:01 Order name: EKG - Nurse/Tech; Complete Time: 17:12 [facility] 05/07 16:01 Order name: O2 Per Protocol; Complete Time: 16:53 [facility] 05/07 16:01 Order name: O2 Sat Monitoring; Complete Time: 16:53 [facility] 05/07 19:02 Order name: IV Saline Lock - Large Bore; Complete Time: 19:26 [facility] EC:29 Rate is 81 beats/min. Rhythm is regular. QRS [place] is Normal. MD interval is normal. QRS piyush interval is normal. QT interval is normal. No Q waves. T waves are Normal. No ST changes noted. Clinical impression: Normal ECG and No evidence of ischemia. Interpreted by me. Reviewed by me. Administered Medications: 16:53 Drug: NS 0.9% IV 1000 ml IV at 1 bolus Per protocol; 1000 mL bolus Route: IV; Rate: 1 me1 bolus; Site: left antecubital; 22:28 Follow up: IV Status: Completed infusion nh1 16:53 Drug: Ondansetron IVP 4 mg IVP once; over 2 minutes Route: IVP; Site: left antecubital; [facility] [place]:28 Follow up: Response: No adverse reaction me1 16:59 Drug: morphine IVP or IV 2 mg IVP once over 4 mins Route: IVP; Infused Over: 4 mins; nh1 Site: left antecubital; 22:27 Follow up: Response: No adverse reaction; Pain is decreased me1 16:59 Drug: Labetalol IV 10 mg IV at per protocol once Route: IV; Rate: per protocol; [place] [facility] [place]cubital; 22:27 Follow up: Response: No adverse reaction; IV Status: Completed infusion me1 18:37 Not Given (bp decreased with first 10 mg dose.): [id number] mg IV at per protocol once me1 over 2 mins; For SBP greater than 140. Hold for HR less than 60, notify provider. 19:03 CANCELLED (Duplicate Order): ns 0.9% 1000 ml IV at 125 ml/hr continuous piyush 19:10 Drug: morphine IVP or IV 2 mg IVP once over 4 mins Route: IVP; Infused Over: 4 mins; me1 Site: left antecubital; 22:27 Follow up: Response: No adverse reaction; Pain is decreased me1 19:10 Drug: NS 0.9% with KCl IV 20 mEq/L 1000 ml IV at 125 ml/hr continuous Route: IV; Rate: me1 125 ml/hr; Site: left antecubital; 22:26 Follow up: IV Status: Infusion continued upon transfer me1 19:19 Drug: NS 0.9% IV 1000 ml IV at 1 bolus Per protocol; 1000 mL bolus Route: IV; Rate: 1 me1 bolus; Site: left antecubital; 22:27 Follow up: IV Status: Completed infusion me1 19:19 Drug: NS 0.9% IV 500 ml IV at bolus once Route: IV; Rate: bolus; Site: left antecubital;me1 22:26 Follow up: IV Status: Completed infusion me1 19:19 Drug: Meropenem IV 1 grams IV at per protocol once; (mix in NS 100 mL) Route: IV; Rate: me1 per protocol; Site: left antecubital; 22:26 Follow up: Response: No adverse reaction; IV Status: Completed infusion me1 19:25 Drug: Promethazine IVP 12.5 mg IVP once Route: IVP; Site: left antecubital; me1 22:26 Follow up: Response: No adverse reaction me1 19:35 Drug: Labetalol IV 10 mg IV at per protocol once over 2 mins; Hold if HR less than 60, me1 notify provider. Ask for repeat dosage for SBP remaining greater than 140 mmHg. Route: IV; Rate: per protocol; Infused Over: 2 mins; Site: left antecubital; 22:26 Follow up: Response: No adverse reaction me1 22:08 Drug: morphine IVP or IV 2 mg IVP once over 4 mins Route: IVP; Infused Over: 4 mins; jb4 Site: left antecubital; 22:26 Follow up: Response: No adverse reaction me1 Disposition Summary: 05/07/23 18:36 Transfer Ordered Notes: Transfer Location: [facility] piyush Reason: Higher level of care piyush Condition: Fair piyush Problem: new piyush Symptoms: have improved piyush Accepting Physician: TO MEDICINE(05/07/23 22:25) me1 Diagnosis - Acute pancreatitis without necrosis or infection, unspecified piyush - Vomiting piyush - Acute kidney failure, unspecified - ON CHRONIC piyush - Upper abdominal pain, unspecified piyush - Elevated white blood cell count piyush - Hypokalemia piyush - Dehydration piyush Forms: - Medication Reconciliation Form piyush - SBAR form piyush Signatures: Dispatcher [employer] EDMS Valerie Rossi RN RN kl Anderson, Corey, MD MD cha Nieto, Roman, MD MD rn Bryson, James, RN RN jb4 Melissa Craig RN RN nj1 Gabby Aviles RN RN me1 Corrections: (The following items were deleted from the chart) 17:16 15:53 SARS-COV-2 Antigen Rapid+I.LAB.BRZ ordered. EDMS EDMS 18:05 15:54 Abdomen Pelvis W Con+CT.RAD.BRZ ordered. EDMS EDMS 18:36 18:36 TO MEDICINE piyush piyush 19:03 19:02 NS 0.9% IV 1000 ml IV at 125 ml/hr continuous ordered. piyush piyush 22:25 18:36 TO MEDICINE piyush me1
--- NOTE | 2023-05-07 18:36 | ER ---
Nurse's Notes [facility] Name: Maribell Alvares Age: 53 yrs Sex: Female : 1970 Arrival Date: 05/07/2023 Time: 15:29 Bed 16 Private MD: Diagnosis: Acute pancreatitis without necrosis or infection, unspecified;Vomiting;Acute kidney failure, unspecified-ON CHRONIC;Upper abdominal pain, unspecified;Elevated white blood cell count;Hypokalemia;Dehydration Presentation: 05/07 15:43 Chief complaint: Patient states: Cough, congestion and vomiting since Wednesday. Upper nj1 abdominal pain since yesterday. Denies diarrhea, chills. Coronavirus screen: Vaccine status: Patient reports receiving the 2nd dose of the covid vaccine. Ebola Screen: Patient denies travel to an Ebola-affected area in the 21 days before illness onset. Initial Sepsis Screen: Does the patient meet any 2 criteria? HR > 90 bpm. No. Patient's initial sepsis screen is negative. Does the patient have a suspected source of infection? No. Patient's initial sepsis screen is negative. Risk Assessment: Do you want to hurt yourself or someone else? Patient reports no desire to harm self or others. Onset of symptoms was May 04, 2023. 15:43 Method Of Arrival: Ambulatory [facility] 15:43 Acuity: CÉSAR 3 nj1 Historical: - Allergies: 15:46 No Known Allergies; nj1 - PMHx: 15:46 Asthma; Hypercholesterolemia; Hypertensive disorder; nj1 - Immunization history:: Client reports receiving the 2nd dose of the Covid vaccine. - Social history:: Smoking status: Patient reports the use of cigarette tobacco products, smokes one-half pack cigarettes per day. Screenin:35 [facility] ED Fall Risk Assessment (Adult) History of falling in the last 3 months, me1 including since admission No falls in past 3 months (0 pts) Confusion or Disorientation No (0 pts) Intoxicated or Sedated No (0 pts) Impaired Gait No (0 pts) Mobility Assist Device Used No (0 pt) Altered Elimination No (0 pt) Score/Fall Risk Level 0 - 2 = Low Risk. Abuse screen: Denies threats or abuse. Nutritional screening: No deficits noted. Tuberculosis screening: No symptoms or risk factors identified. Assessment: 15:35 General: Appears uncomfortable, well groomed, well developed, well nourished, Behavior me1 is calm, cooperative, appropriate for age, Reports Cough, congestion and vomiting since Wednesday. Upper abdominal pain since yesterday. Denies diarrhea, chills. Pain: Complains of pain in left upper quadrant and right upper quadrant and epigastric area Pain radiates to back Pain currently is 9 out of 10 on a pain scale. Quality of pain is described as sharp, shooting, Pain began gradually, 4 days ago Is continuous, Alleviated by. 15:35 Neuro: Level of Consciousness is awake, alert, obeys commands, Oriented to person, me1 place, time, situation, Appropriate for age. Cardiovascular: Capillary refill < 3 seconds Patient's skin is warm and dry. Respiratory: Airway is patent Respiratory effort is even, unlabored, Respiratory pattern is regular, symmetrical. GI: Abdomen is distended, Reports nausea, vomiting, since 4 days ago. Vital Signs: 15:43 BP 154 / 115; Pulse 116; Resp 18; Temp 97.5(O); Pulse Ox 100% ; Weight 86.18 kg; Height nj1 5 ft. 7 in. ; Pain 8/10; 16:15 BP 154 / 126; Pulse 109; Resp 20; Pulse Ox 100% on R/A; me1 16:55 BP 145 / 99; Pulse 108; Resp 18; Pulse Ox 100% on R/A; me1 17:05 BP 136 / 105; Pulse 87; Resp 19; Pulse Ox 100% ; me1 18:07 BP 156 / 100; Pulse 89; Resp 20; Pulse Ox 100% on R/A; me1 18:30 BP 156 / 110; Pulse 90; Resp 20; Pulse Ox 100% on R/A; me1 19:00 BP 147 / 100; Pulse 84; Resp 19; Pulse Ox 100% ; me1 19:42 BP 169 / 116; Pulse 82; Resp 19; Pulse Ox 100% on R/A; me1 19:51 BP 117 / 115; Pulse 82; Resp 20; Pulse Ox 100% on R/A; me1 19:59 BP 144 / 106; Pulse 94; Resp 18; Pulse Ox 100% on R/A; me1 20:36 BP 153 / 92; Pulse 75; Resp 18; Pulse Ox 100% on R/A; me1 15:43 Body Mass Index 29.76 (86.18 kg, 170.18 cm) nj1 15:43 Pain Scale: Adult [facility] ED Course: 15:31 Patient arrived in ED. mr 15:35 Patient has correct armband on for positive identification. Placed in gown. Bed in low me1 position. Call light in reach. Provided Education on: POC. Verbalized understanding. . 15:35 No provider procedures requiring assistance completed. me1 15:46 Triage completed. nj1 15:47 Arm band placed on left wrist. nj1 15:58 Salinas Thurman MD is Attending Physician. [facility] 16:18 Gabby Aviles, IRMA is Primary Nurse. me1 16:42 XRAY Chest (1 view) In Process Unspecified. EDMS 16:50 US Abdomen Limited In Process Unspecified. EDMS 16:53 CBC with Diff Sent. me1 16:53 CMP Sent. me1 16:53 Lipase Sent. me1 16:53 Inserted saline lock: 20 gauge in left antecubital area, using aseptic technique. me1 17:12 Strep Sent. me1 17:12 Flu Sent. me1 18:11 Cholangiogram In Process Unspecified. EDMS 18:14 CT Abd/Pelvis - Without Contrast In Process Unspecified. EDMS 18:36 Initiated transfer with Cristina at [facility]. rv1 20:[address] Santos to [facility] rm [id number]. rv1 22:25 Patient transferred, IV remains in place. me1 Administered Medications: 16:53 Drug: NS 0.9% IV 1000 ml IV at 1 bolus Per protocol; 1000 mL bolus Route: IV; Rate: 1 me1 bolus; Site: left antecubital; 22:28 Follow up: IV Status: Completed infusion me1 16:53 Drug: Ondansetron IVP 4 mg IVP once; over 2 minutes Route: IVP; Site: left antecubital; me1 22:28 Follow up: Response: No adverse reaction me1 16:59 Drug: morphine IVP or IV 2 mg IVP once over 4 mins Route: IVP; Infused Over: 4 mins; wv1 Site: left antecubital; 22:27 Follow up: Response: No adverse reaction; Pain is decreased me1 16:59 Drug: Labetalol IV 10 mg IV at per protocol once Route: IV; Rate: per protocol; Site: [facility] [place]cubital; : Follow up: Response: No adverse reaction; IV Status: Completed infusion me1 18:37 Not Given (bp decreased with first 10 mg dose.): [id number] mg IV at per protocol once me1 over 2 mins; For SBP greater than 140. Hold for HR less than 60, notify provider. 19:03 CANCELLED (Duplicate Order): ns 0.9% 1000 ml IV at 125 ml/hr continuous piyush 19:10 Drug: morphine IVP or IV 2 mg IVP once over 4 mins Route: IVP; Infused Over: 4 mins; me1 Site: left antecubital; : Follow up: Response: No adverse reaction; Pain is decreased me1 19:10 Drug: NS 0.9% with KCl IV 20 mEq/L 1000 ml IV at 125 ml/hr continuous Route: IV; Rate: me1 125 ml/hr; Site: left antecubital; 22: Follow up: IV Status: Infusion continued upon transfer me1 19:19 Drug: NS 0.9% IV 1000 ml IV at 1 bolus Per protocol; 1000 mL bolus Route: IV; Rate: 1 me1 bolus; Site: left antecubital; :27 Follow up: IV Status: Completed infusion me1 19:19 Drug: NS 0.9% IV 500 ml IV at bolus once Route: IV; Rate: bolus; Site: left antecubital;me1 22:26 Follow up: IV Status: Completed infusion me1 19:19 Drug: Meropenem IV 1 grams IV at per protocol once; (mix in NS 100 mL) Route: IV; Rate: me1 per protocol; Site: left antecubital; 22:26 Follow up: Response: No adverse reaction; IV Status: Completed infusion me1 19:25 Drug: Promethazine IVP 12.5 mg IVP once Route: IVP; Site: left antecubital; me1 22:26 Follow up: Response: No adverse reaction me1 19:35 Drug: Labetalol IV 10 mg IV at per protocol once over 2 mins; Hold if HR less than 60, me1 notify provider. Ask for repeat dosage for SBP remaining greater than 140 mmHg. Route: IV; Rate: per protocol; Infused Over: 2 mins; Site: left antecubital; 22:26 Follow up: Response: No adverse reaction me1 22:08 Drug: morphine IVP or IV 2 mg IVP once over 4 mins Route: IVP; Infused Over: 4 mins; jb4 Site: left antecubital; 22:26 Follow up: Response: No adverse reaction me1 Medication: 15:35 VIS not applicable for this client. me1 Outcome: 18:36 ER care complete, transfer ordered by . piyush 21:03 Transferred by ground EMS to [facility], Transfer form completed. me1 Note: Report called to IRMA Jenkins 21:03 Condition: stable 22:25 Patient left the ED. wv1 Signatures: Dispatcher [employer] EDMS Salinas Thurman MD MD cha Rivera, Mary, Reg Vadim Stinson, RN RN jb4 Leny Avalos 1 Melissa Craig RN RN nj1 Gabby Aviles RN RN wv1 Corrections: (The following items were deleted from the chart) 16:19 15:43 Chief complaint: Patient states: Cough, congestion and vomiting since Wednesday. me1 Upper abdominal pain since yesterday. Denies diarrhea, chills. [facility] 17:12 16:59 Labetalol IV 10 mg IV at per protocol in left antecubital over 2 mins [place] [id number] 17:16 16:53 SARS-COV-2 Antigen Rapid+I.LAB.BRZ drawn and sent. [facility] EDMI 20:54 15:43 Chief complaint: Patient states: Cough, congestion and vomiting since Wednesday. me1 Upper abdominal pain since yesterday. Denies diarrhea, chills. [facility]
[2023-05-07] MEDS ORDERED: Meropenem 1000 MG/VIAL IV ONE (19:08)
[2023-05-07] MEDS ORDERED: NA CHLORIDE 0.9% 100 ML ONE (19:09)
[2023-05-07] MEDS ORDERED: NA CHLORIDE 0.9% 500 ML ONE (19:09)
[2023-05-07] MEDS ORDERED: PROMETHAZINE INJ 25 MG/ML AMP ONE (19:34)
[2023-05-07 23:14] VITALS: O2SAT 100
[2023-05-07 23:16] VITALS: TEMP 97.5
[2023-05-07 23:31] VITALS: BP 153/92
--- NOTE | 2023-05-12 17:08 | EKG ---
Test Date: 2023-05-07 Test Time: 17:16:00 Vice President Biostatistics: MEASUREMENT RESULTS: Intervals: Rate: 81 AL: 146 QRSD: 88 QT: 388 QTc: 450 [place]: P: 72 AL: 146 QRS: 55 T: 69 INTERPRETIVE STATEMENTS: Normal sinus rhythm Normal ECG Compared to ECG 05/22/2022 00:01:48 T-wave abnormality no longer present Electronically Signed On 05-12-23 16:55:50 FLAME CHANNELER by Anthony Cartwright
== END 2023-05-07 22:25 | disposition short-term general hospital (02) ==
LOC: ER 15:29
DX: K85.90 Acute pancreatitis without necrosis or infection, unspecified (principal); E86.0 Dehydration; E87.6 Hypokalemia; D72.829 Elevated white blood cell count, unspecified; R10.10 Upper abdominal pain, unspecified; I12.9 Hypertensive chronic kidney disease with stage 1 through stage 4 chronic kidney disease, or unspecified chronic kidney disease; N18.9 Chronic kidney disease, unspecified; N17.9 Acute kidney failure, unspecified; F17.210 Nicotine dependence, cigarettes, uncomplicated
CPT/HCPCS: 36415; 71045; 74176; 74181; 76705; 80053; 83690; 83735; 83880; 84484; 85025; 85610; 87070; 87081; 87635; 87804; 93005; 96365; 96366; 96375; 99285; J2185; J2270; J2405; J2550; J7030; J7040